=== PATIENT | female | born 1980 | race Caucasian/White ===

== ENCOUNTER 2022-01-10 09:40 | Emergency (ER) | payer BC ==
[2022-01-10 09:59] VITALS: BP 148/90; PULSE 86
== END 2022-01-10 10:29 | disposition home or self-care (01) ==
LOC: JP.ED 09:40
DX: S80.862A Insect bite (nonvenomous), left lower leg, initial encounter (principal); Z88.2 Allergy status to sulfonamides; W57.XXXA Bitten or stung by nonvenomous insect and other nonvenomous arthropods, initial encounter
CPT/HCPCS: 99281